=== PATIENT | male | born 1945 ===

== ENCOUNTER 2016-12-25 14:50 | Observation (INO) | payer MEDICARE, MEDICAID ==
[2016-12-25] MEDS ORDERED: Aspirin 325 mg EC Tablets PO STA (15:30)
[2016-12-25 15:54] LABS: BASO # 0.1 K/uL (0.0-0.2); BASO % 0.9 % (0.0-2.0); EOS # 0.2 K/uL (0.0-0.7); EOS % 2.3 % (0.0-4.0); HEMATOCRIT 45.7 % (35.0-51.0); LYMPH % 60.9 % (20.0-40.0); MEAN CELL VOLUME 96.2 fL (80.0-94.0); MEAN CORPUSCULAR HEMOGLOBIN 31.4 pg (27.0-31.0); MEAN CORPUSCULAR HGB CONC 32.6 g/dL (33.0-37.0); MEAN PLATELET VOLUME 10.5 fL (7.2-11.7); MONO # 0.7 K/uL (0.0-0.8); MONO % 11.1 % (0.0-10.0); NRBC % 0.1 % (0.0-2.0); RED CELL DISTRIBUTION WIDTH 14.7 % (11.5-14.5); WHITE BLOOD COUNT 6.6 K/uL (4.8-10.8)
[2016-12-25 15:57] LABS: INR 1.7
[2016-12-25] MEDS ORDERED: Nitroglycerin 2% Ointment Foilpak UD TOP STA (15:58)
[2016-12-25 15:59] LABS: CHLORIDE 101 mmol/L (98-107); SODIUM 138 mmol/L (132-148)
[2016-12-25 16:00] LABS: POTASSIUM 4.3 mmol/L (3.6-5.2)
[2016-12-25 16:02] LABS: ALKALINE PHOSPHATASE 67 U/L (38-126); ALT/SGPT 36 U/L (21-72); AST/SGOT 31 U/L (17-59); BILIRUBIN,TOTAL 1.1 mg/dL (0.2-1.3); BLOOD UREA NITROGEN 14 mg/dL (9-20); CARBON DIOXIDE 26 mmol/L (22-30); GFR AFRICAN-AMERICAN > 60; GLUCOSE,RANDOM 99 mg/dL (75-110); TOTAL PROTEIN 7.8 g/dL (6.3-8.3)
[2016-12-25] MEDS ORDERED: Nitroglycerin 2% Ointment Foilpak UD TOP ONE (16:16)
--- NOTE | 2016-12-25 16:23 | RAD ---
PROCEDURE: CHEST RADIOGRAPH, 1 VIEW HISTORY: SOB COMPARISON: 07/07/2016. FINDINGS: LUNGS: There is mild pulmonary venous congestion. No focal consolidation. PLEURA: No pneumothorax or pleural fluid seen. CARDIOVASCULAR: There is moderate cardiomegaly. Status post CABG. There is stable position of a left-sided unipolar transvenous permanent pacing device. OSSEOUS STRUCTURES: No significant abnormalities. VISUALIZED UPPER ABDOMEN: Normal. OTHER FINDINGS: None. IMPRESSION: Persistent moderate cardiomegaly and mild pulmonary venous congestion.
[2016-12-25 16:24] LABS: RBC URINE < 1 /hpf (0-3); URINE BILIRUBIN NEGATIVE (NEGATIVE); URINE BLOOD NEGATIVE (NEGATIVE); URINE COLOR Yellow (YELLOW); URINE GLUCOSE (UA) NORMAL (Normal); URINE KETONE NEGATIVE (NEGATIVE); URINE LEUKOCYTE ESTERASE NEG Leu/uL (Negative); URINE PROTEIN NEGATIVE (NEGATIVE); URINE UROBILINOGEN NORMAL mg/dL (0.2-1.0); WBC URINE < 1 /hpf (0-5)
--- NOTE | 2016-12-25 16:33 | C.PDOC ---
History Of Present Illness 71 y/o male brought to ED by ambulance for evaluation of intermittent digitally and positionally reproducible left sided chest pain for the last 3 weeks. Notes taking unknown meds for his discomfort, but did not take it today. Denies any pain at this time. Otherwise, denies any shortness of breath, headache, fever, chills cough, nausea, vomiting, diarrhea, diaphoresis, jaw pain, back pain, or lower extremity pain/swelling. Cardiac catherization reviewed from 07/17 with patent grafts. Time Seen by Provider: 12/25/16 15:25 Chief Complaint (Nursing): Chest Pain History Per: Patient History/Exam Limitations: no limitations Onset/Duration Of Symptoms: Days (3 weeks), Intermittent Episodes Current Symptoms Are (Timing): Still Present Associated Symptoms: denies: Nausea, Dyspnea, Diaphoresis, Syncope Alleviating Factors: None Recent travel outside of the [place]: No Additional History Per: Patient Past Medical History Reviewed: Historical Data, Nursing Documentation, Vital Signs Vital Signs: Last Vital Signs Temp Pulse 77 12/25/16 16:13 Resp 14 12/25/16 16:13 BP 156/96 H 12/25/16 16:13 Pulse Ox 97 12/25/16 18:00 - Medical History PMH: Anxiety, HTN Denies: Chronic Kidney Disease Surgical History: Coronary Stent, Pacemaker - [facility] Procedures FLUOROSCOPY OF LEFT HEART USING LOW OSMOLAR CONTRAST (07/07/16) FLUOROSCOPY OF MULT COR ART USING L OSM CONTRAST (07/07/16) MEASURE OF CARDIAC SAMPL & PRESSURE, L HEART, PERC APPROACH (07/07/16) Family History: States: Unknown Family Hx - Social History Hx Alcohol Use: No Hx Substance Use: No - Immunization History Hx Tetanus Toxoid Vaccination: No Review Of Systems Except As Marked, All Systems Reviewed And Found Negative. Constitutional: Negative for: Fever, Chills Cardiovascular: Positive for: Chest Pain. Negative for: Palpitations, Edema, Light Headedness Respiratory: Negative for: Cough, Shortness of Breath Gastrointestinal: Negative for: Nausea, Vomiting, Abdominal Pain Neurological: Negative for: Headache, Dizziness Physical Exam - Physical Exam Appears: Non-toxic, No Acute Distress Skin: Normal Color, Warm, Dry, No Rash Head: Atraumatic, Normacephalic Eye(s): bilateral: Normal Inspection Oral Mucosa: Moist Neck: Normal ROM, Supple Chest: Symmetrical, No Deformity, Tenderness (digitally and positionally reproducible discomfort at Left chest wall, around T5), Other (midline sternotomy scar, pacemaker to left upper chest) Cardiovascular: Rhythm Regular, No Murmur, No JVD Respiratory: Normal Breath Sounds, No Rales, No Rhonchi, No Wheezing Gastrointestinal/Abdominal: Soft, No Tenderness, Other (obese abdomen) Back: Normal Inspection, No CVA Tenderness Extremity: Normal ROM, Pedal Edema (trace), No Deformity Extremity: Bilateral: Atraumatic Neurological/Psych: Oriented x3, Normal Speech, Normal Cognition ED Course And Treatment - Laboratory Results Result Diagrams: 12/25/16 15:42 12/25/16 15:42 Lab Interpretation: Normal (trop/bnp neg.) ECG: Interpreted By Me ECG Rhythm: Sinus Tachycardia ECG Interpretation: Normal, Abnormal Rate From EC O2 Sat by Pulse Oximetry: 97 Pulse Ox Interpretation: Normal - Radiology CXR: Interpreted by Me CXR Interpretation: Yes: No Acute Disease, Heart Size (++ megaly) Reevaluation Time: 16:34 Reassessment Condition: Improved - Physician Consult Information Outcome Of Conversation: 1635: d/w Hospitalists covering Dr. Cuevas's pt's. ok to tele Obs. Medical Decision Making Medical Decision Making: concerning for angina, though 2 recent cardiac evals and "clear" cardiac cath w Dr. Whaley. Digitally reproducable discomfort @ L chest wall T5 mid-clavicular line and no rash is c/w costochondritis and MAY be pt's complaint but difficult to distinguish, even speaking pt's [place] Tele Obs and repeat Cardiac Eval Dig Subtheraputic and baseline tachy, but may be related to pain/anxiety as HR 70's on eval by monitor. Disposition Doctor Will See Patient In The: Hospital Counseled Patient/Family Regarding: Studies Performed, Diagnosis - Disposition Disposition: HOSPITALIZED Disposition Time: 16:37 Condition: GOOD - Clinical Impression Clinical Impression: Chest discomfort, Chest wall discomfort - Scribe Statement The provider has reviewed the documentation as recorded by the Nadir Maharaj All medical record entries made by the Scribe were at my direction and personally dictated by me. I have reviewed the chart and agree that the record accurately reflects my personal performance of the history, physical exam, medical decision making, and the department course for this patient. I have also personally directed, reviewed, and agree with the discharge instructions and disposition.
--- NOTE | 2016-12-25 17:06 | CP.PCM.HP ---
<[place] - Last Filed: 12/25/16 18:28> History of Present Illness - History of Present Illness History of Present Illness: Medicine Note for Dr. Mckeon CC: Chest Pain HPI: 71M with PMHx of Ishemic Cardiomyopathy with AICD, HTN, CAD, HLD, and CVA presents to the ED with chest pain. He had this intermittent left sided, sharp chest pain that last for 2-3 minutes. He does not take anything for it, but admits when he touches his chest, it hurts. Patient reports he is noncompliant with his medications, taking them when he remembers to. He came in today because he felt the same degree of pain when he had a heart attack in July 2016. Patient had full work up in July 2016 when he presented with chest pain, with cardiac cath showing patent graphs. Denied fever, chills, headache, current chest pain, abdominal pain, n/v/d/c, or urinary symptoms. PMHx: Ishemic Cardiomyopathy with AICD, HTN, CAD, HLD, and CVA PSHx: AICD Meds: Reviewed and confirmed, meds as per JUL All: PCN- rash SHx: Denied x3 FHx: Unremarkable Present on Admission - Present on Admission Any Indicators Present on Admission: No Past Patient History - Infectious Disease Hx of Infectious Diseases: None - Past Medical History & Family History Past Medical History?: Yes - Past Social History Smoking Status: Never Smoked - CARDIAC Hx Hypertension: Yes Hx Pacemaker: Yes - PULMONARY Hx Respiratory Disorders: No - NEUROLOGICAL Hx Neurological Disorder: No HX Cerebrovascular Accident: Yes - HEENT Hx HEENT Problems: No - RENAL Hx Chronic Kidney Disease: No - ENDOCRINE/METABOLIC Hx Endocrine Disorders: No - HEMATOLOGICAL/ONCOLOGICAL Hx Blood Disorders: No - INTEGUMENTARY Hx Dermatological Problems: No - MUSCULOSKELETAL/RHEUMATOLOGICAL Hx Musculoskeletal Disorders: No - GASTROINTESTINAL Hx Gastrointestinal Disorders: No - GENITOURINARY/GYNECOLOGICAL Hx Genitourinary Disorders: No - PSYCHIATRIC Hx Anxiety: Yes Hx Substance Use: No - SURGICAL HISTORY Hx Coronary Stent: Yes - ANESTHESIA Hx Anesthesia: Yes Hx Anesthesia Reactions: No Hx Malignant Hyperthermia: No Meds Allergies/Adverse Reactions: Allergies Allergy/AdvReac Type Severity Reaction Status Date / Time Penicillins Allergy Mild Verified 07/07/16 03:04 Physical Exam - Constitutional Appears: No Acute Distress - Head Exam Head Exam: NORMAL INSPECTION, NORMOCEPHALIC - Eye Exam Eye Exam: EOMI, Normal appearance, PERRL Pupil Exam: NORMAL ACCOMODATION - ENT Exam ENT Exam: Mucous Membranes Moist - Respiratory Exam Respiratory Exam: NORMAL BREATHING PATTERN. absent: Clear to Auscultation Bilateral - Cardiovascular Exam Cardiovascular Exam: Tachycardia, +S1, +S2 Additional comments: Digitally reproducable discomfort @ L chest wall T5 mid-clavicular line and no rash AICD - GI/Abdominal Exam GI & Abdominal Exam: Normal Bowel Sounds, Soft. absent: Distended, Tenderness - Extremities Exam Extremities exam: Positive for: normal inspection, pedal pulses present. Negative for: pedal edema, tenderness - Neurological Exam Neurological exam: Alert, Oriented x3 - Psychiatric Exam Psychiatric exam: Normal Affect, Normal Mood - Skin Skin Exam: Dry, Intact, Normal Color, Warm Results - Vital Signs Recent Vital Signs: Last Vital Signs Temp Pulse 77 12/25/16 16:13 Resp 14 12/25/16 16:13 BP 156/96 H 12/25/16 16:13 Pulse Ox 97 12/25/16 16:38 - Labs Result Diagrams: 12/25/16 15:42 12/25/16 15:42 Assessment & Plan - Assessment and Plan (Free Text) Plan: Chest Pain R/O ACS * EKG: Sinus Tachycardia @ 101 * 1st AYANA negative * Patient was seen July 2016. Hx of AICD. Echo- LV mildly dilated, systolic function moderately impaired, LVEF 30%. Regional wall motion abnormalities noted in lateral and apical wall. He had an NSTEMI during that admission. Patient had cardiac catherization with Dr. Sierra - patent grafts. recommend continued aspirin plavix. patient was stable for discharge. * Cardiology consulted - Dr. Sierra consulted- help appreciated * f/u AYANA and EKG x 2, lipid panel, hga1c, tsh, t4 Chest Wall Tenderness * Consistent with costochondritis * Digitally reproducible discomfort @ L chest wall T5 mid-clavicular line and no rash is seen on exam * Toradol PRN Ischemic cardiomyopathy * AICD in place Hx HTN * Continue Metoprolol Succinate 50mg PO Daily Hx of NSTEMI * Patient had cardiac catherization with Dr. Sierra - patent grafts. recommend continued aspirin plavix. patient was stable for discharge. Hx CAD * Continue Xarelto 15mg PO daily Hx of HLD * Started Crestor 20mg PO QHS Hx of CVA * Continue Xarelto 15mg PO daily Prophylactic Measures * GI PPX: Pepcid 40mg PO daily * DVT PPX: SCDs, on anticoagulation due to CAD, Hx of NSTEMI, CVA * HHD DW Dr. Mckeon, Shanda SKINNER, PGY-1 <Tom Mckeon H - Last Filed: 12/26/16 07:39> Results - Vital Signs Recent Vital Signs: Last Vital Signs Temp 97.4 F L 12/26/16 04:47 Pulse 78 12/26/16 04:47 Resp 20 12/26/16 04:47 BP 156/98 H 12/26/16 04:47 Pulse Ox 96 12/26/16 04:47 - Labs Result Diagrams: 12/25/16 15:42 12/25/16 15:42 Labs: Laboratory Results - last 24 hr 12/25/16 22:43 Total Creatine Kinase 118 CK-MB (Mass) 1.89 Troponin I, Quant 0.0390 Attending/Attestation - Attestation I have personally seen and examined this patient.: Yes I have fully participated in the care of the patient.: Yes I have reviewed all pertinent clinical information: Yes Notes (Text): Medical attending: Patient was seen and examined by me, agrees the above note by medical/surgery registered nurse. When we saw the patient he was in ER bed 6. This is a patient who walked physical exam and discussing with the patient it appears that the chest pain he is having may be costochondritis/musculoskeletal since it is reproducible on exam - however he has many risk factors including: he states that he is rather noncompliant with his medications. He's had CABG surgery in the past, he's had stenting done in the past, he is also had he has had an AICD, CVA on his right side of his brain with some residual weakness on his left side. It is not entirely clear to me if he smokes or not. Per review of the EKG he has prominent Q waves, and he has very poor R-wave progression. All of these are suggestive of a lot of cardiac history So will check additional cardiac enzymes. We'll give some anti-inflammatory pain medication. Because of his medical history will have to notify the patient' s office secretary as well. The patient explains that he has not followed up with his office secretary since July of this year Thank you so much, Tom Mckeon
[2016-12-25 18:24] LABS: T4 6.92 ug/dL (5.5-11.0)
[2016-12-25 18:38] LABS: THYROID STIMULATING HORMONE 2.12 mIU/L (0.46-4.68)
[2016-12-26 07:40] LABS: BASO # 0.1 K/uL (0.0-0.2); EOS # 0.3 K/uL (0.0-0.7); EOS % 4.4 % (0.0-4.0); HEMATOCRIT 45.7 % (35.0-51.0); LYMPH # 3.5 K/uL (1.0-4.3); LYMPH % 56.7 % (20.0-40.0); MEAN CELL VOLUME 96.7 fL (80.0-94.0); MEAN CORPUSCULAR HEMOGLOBIN 32.3 pg (27.0-31.0); MEAN CORPUSCULAR HGB CONC 33.4 g/dL (33.0-37.0); MEAN PLATELET VOLUME 10.4 fL (7.2-11.7); MONO # 0.6 K/uL (0.0-0.8); MONO % 10.1 % (0.0-10.0); NRBC % 0.1 % (0.0-2.0); RED CELL DISTRIBUTION WIDTH 14.8 % (11.5-14.5); WHITE BLOOD COUNT 6.1 K/uL (4.8-10.8)
--- NOTE | 2016-12-26 08:40 | CP.PCM.PN ---
Subjective - Date & Time of Evaluation Date of Evaluation: 12/26/16 Time of Evaluation: 08:39 - Subjective Subjective: Medicine Note for Dr. Sanchez's Service Pt seen and examined at bedside. He states that he is feeling better today. He denies any chest pain or shortness of breath. Pt states that he came into the hospital yesterday because he had a lot on his mind that was stressing him out but he is better today. No acute events overnight as per nursing staff. Objective - Vital Signs/Intake and Output Vital Signs (last 24 hours): Temp Pulse Resp BP Pulse Ox 97.6 F 64 18 146/84 97 12/26/16 07:15 12/26/16 07:15 12/26/16 07:15 12/26/16 07:15 12/26/16 07:15 Intake and Output: 12/26/16 12/26/16 06:59 18:59 Output Total 900 Balance -900 - Medications Medications: Current Medications Famotidine (Pepcid) 40 mg PO DAILY [facility] Ketorolac Tromethamine (Toradol) 30 mg IVP Q6 PRN PRN Reason: Pain, moderate (4-7) Last Admin: 12/26/16 06:33 Dose: 30 mg Metoprolol Succinate (Toprol Xl) 50 mg PO DAILY [facility] Rivaroxaban (Xarelto) 15 mg PO DAILY [facility] Rosuvastatin Calcium (Crestor) 20 mg PO HS [facility] Last Admin: 12/25/16 22:29 Dose: 20 mg Zolpidem Tartrate (Ambien) 5 mg PO [facility] Last Admin: 12/25/16 22:29 Dose: 5 mg - Labs Labs: 12/26/16 07:27 PT 19.8 SECONDS (9.7-12.2) H 12/25/16 15:42 INR 1.7 12/25/16 15:42 APTT 36 SECONDS (21-34) H 12/25/16 15:42 - Constitutional Appears: No Acute Distress - Head Exam Head Exam: ATRAUMATIC, NORMAL INSPECTION - Eye Exam Eye Exam: EOMI, Normal appearance - ENT Exam ENT Exam: Mucous Membranes Moist - Respiratory Exam Respiratory Exam: Clear to Ausculation Bilateral, NORMAL BREATHING PATTERN - Cardiovascular Exam Cardiovascular Exam: Tachycardia (mild) Additional comments: reproducible chest wall tenderness - GI/Abdominal Exam GI & Abdominal Exam: Soft. absent: Tenderness - Neurological Exam Neurological Exam: Alert, Awake, Oriented x3 - Psychiatric Exam Psychiatric exam: Normal Affect, Normal Mood - Skin Skin Exam: Dry, Intact Assessment and Plan - Assessment and Plan (Free Text) Plan: Patient is clinically stable and no acute changes. He is currently asymptomatic and awaiting cardiology evaluation by Dr. Sierra. We will follow up recommendations from Dr. Sierra and proceed forward. Chest Pain R/O ACS * EKG: Sinus Tachycardia; unchanged from previous EKG * AYANA's: 0.036->0.039->0.043 * Patient was seen July 2016. Hx of AICD. Echo- LV mildly dilated, systolic function moderately impaired, LVEF 30%. Regional wall motion abnormalities noted in lateral and apical wall. He had an NSTEMI during that admission. Patient had cardiac catherization with Dr. Sierra - isael grafts. recommend continued aspirin plavix. patient was stable for discharge. * Cardiology consulted - Dr. Sierra consulted- help appreciated * Lipid panel * Total cholesterol- 127 * Triglycerides-102 * HDL-37 * LDL-79 * Hemoglobin A1C 6.7 * TSH 2.2 and T4 6.92 Chest Wall Tenderness * Consistent with costochondritis * Digitally reproducible discomfort @ L chest wall T5 mid-clavicular line and no rash is seen on exam * Toradol PRN Ischemic cardiomyopathy * AICD in place Hx HTN * Continue Metoprolol Succinate 50mg PO Daily Hx of NSTEMI * Patient had cardiac catherization with Dr. Sierra - patent grafts. recommend continued aspirin and plavix. Hx CAD * Continue Xarelto 15mg PO daily * Pt admits to non-compliance with xarelto at home Hx of HLD * Started Crestor 20mg PO QHS Hx of CVA * Continue Xarelto 15mg PO daily Insomnia * Ambien 50mg PO hs Prophylactic Measures * GI PPX: Pepcid 40mg PO daily * DVT PPX: SCDs, on anticoagulation due to CAD, Hx of NSTEMI, CVA * HHD Case discussed with Dr. Mckeon.
[2016-12-26 08:57] LABS: CHLORIDE 102 mmol/L (98-107); POTASSIUM 4.5 mmol/L (3.6-5.2); SODIUM 136 mmol/L (132-148)
[2016-12-26 08:59] LABS: ALB/GLOB RATIO 0.9 (1.0-2.1); ALKALINE PHOSPHATASE 74 U/L (38-126); AST/SGOT 48 U/L (17-59); BILIRUBIN,TOTAL 1.1 mg/dL (0.2-1.3); BLOOD UREA NITROGEN 16 mg/dL (9-20); CARBON DIOXIDE 21 mmol/L (22-30); CHOLESTEROL 127 mg/dL (0-199); GFR AFRICAN-AMERICAN > 60; TOTAL PROTEIN 7.6 g/dL (6.3-8.3)
[2016-12-26 09:00] LABS: ALT/SGPT 23 U/L (21-72); CALCIUM 8.9 mg/dl (8.6-10.4); GLUCOSE,RANDOM 105 mg/dL (75-110); MAGNESIUM 1.9 mg/dL (1.6-2.3); PHOSPHOROUS 3.3 mg/dL (2.5-4.5)
[2016-12-26] MEDS ORDERED: Metoprolol Succinate 50 mg XL Tab PO SCH (10:00)
--- NOTE | 2016-12-26 13:57 | CP.PCM.CON ---
History of Present Illness - History of Present Illness History of Present Illness: CC: Chest pain HPI: 71 year old man with the following chronic conditions 1. Paroxysmal atrial fibrillation 2. HTN 3. Dyslipidemia 4. Ischemic cardiomyopathy Past Patient History - Infectious Disease Hx of Infectious Diseases: None - Past Medical History & Family History Past Medical History?: Yes - Past Social History Smoking Status: Never Smoked - CARDIAC Hx Hypertension: Yes Hx Pacemaker: Yes - PULMONARY Hx Respiratory Disorders: No - NEUROLOGICAL Hx Neurological Disorder: No HX Cerebrovascular Accident: Yes - HEENT Hx HEENT Problems: No - RENAL Hx Chronic Kidney Disease: No - ENDOCRINE/METABOLIC Hx Endocrine Disorders: No - HEMATOLOGICAL/ONCOLOGICAL Hx Blood Disorders: No - INTEGUMENTARY Hx Dermatological Problems: No - MUSCULOSKELETAL/RHEUMATOLOGICAL Hx Musculoskeletal Disorders: No Hx Falls: No - GASTROINTESTINAL Hx Gastrointestinal Disorders: No - GENITOURINARY/GYNECOLOGICAL Hx Genitourinary Disorders: No - PSYCHIATRIC Hx Anxiety: Yes Hx Substance Use: No - SURGICAL HISTORY Hx Coronary Stent: Yes - ANESTHESIA Hx Anesthesia: Yes Hx Anesthesia Reactions: No Hx Malignant Hyperthermia: No Meds Allergies/Adverse Reactions: Allergies Allergy/AdvReac Type Severity Reaction Status Date / Time Penicillins Allergy Mild Verified 07/07/16 03:04 - Medications Medications: Current Medications Famotidine (Pepcid) 40 mg PO DAILY [facility] Last Admin: 12/26/16 09:41 Dose: 40 mg Ketorolac Tromethamine (Toradol) 30 mg IVP Q6 PRN PRN Reason: Pain, moderate (4-7) Last Admin: 12/26/16 06:33 Dose: 30 mg Metoprolol Succinate (Toprol Xl) 50 mg PO DAILY [facility] Last Admin: 12/26/16 09:41 Dose: 50 mg Rivaroxaban (Xarelto) 15 mg PO DAILY [facility] Last Admin: 12/26/16 09:41 Dose: 15 mg Rosuvastatin Calcium (Crestor) [address] [facility] Last Admin: 12/25/16 22:29 Dose: 20 mg Zolpidem Tartrate (Ambien) [address] [facility] Last Admin: 12/25/16 22:29 Dose: 5 mg Physical Exam - Constitutional Appears: Well, Non-toxic - Head Exam Head Exam: ATRAUMATIC, NORMAL INSPECTION - ENT Exam ENT Exam: Mucous Membranes Moist, Normal External Ear Exam - Neck Exam Neck exam: Positive for: Full Rom. Negative for: Lymphadenopathy, Thyromegaly - Respiratory Exam Respiratory Exam: Clear to Auscultation Bilateral, NORMAL BREATHING PATTERN - Cardiovascular Exam Cardiovascular Exam: REGULAR RHYTHM, RRR, +S1, +S2. absent: JVD - GI/Abdominal Exam GI & Abdominal Exam: Normal Bowel Sounds. absent: Organomegaly - Extremities Exam Extremities exam: Negative for: calf tenderness, pedal edema - Neurological Exam Neurological exam: CN II-XII Intact, Oriented x3 - Psychiatric Exam Psychiatric exam: Normal Affect, Normal Mood Results - Vital Signs Recent Vital Signs: Last Vital Signs Temp 97.6 F 12/26/16 07:15 Pulse 64 12/26/16 07:15 Resp 18 12/26/16 07:15 BP 146/84 12/26/16 07:15 Pulse Ox 97 12/26/16 07:15 - Labs Result Diagrams: 12/26/16 07:27 12/26/16 08:51 Labs: Laboratory Results - last 24 hr 12/25/16 12/26/16 12/26/16 22:43 07:27 07:27 WBC 6.1 RBC 4.72 Hgb 15.3 Hct 45.7 MCV 96.7 H MCH 32.3 H MCHC 33.4 RDW 14.8 H Plt Count 115 L MPV 10.4 Neut % (Auto) 27.8 L Lymph % (Auto) 56.7 H Foard % (Auto) 10.1 H Eos % (Auto) 4.4 H Baso % (Auto) 1.0 Neut # 1.7 L Lymph # 3.5 Foard # 0.6 Eos # 0.3 Baso # 0.1 Sodium Potassium Chloride Carbon Dioxide Anion Gap BUN Creatinine Est GFR ( Amer) Est GFR (Non-Af Amer) Random Glucose Calcium Phosphorus Magnesium Total Bilirubin AST ALT Alkaline Phosphatase Total Creatine Kinase 118 131 CK-MB (Mass) 1.89 2.19 Troponin I, Quant 0.0390 0.0430 Total Protein Albumin Globulin Albumin/Globulin Ratio Triglycerides Cholesterol LDL Cholesterol Direct HDL Cholesterol 12/26/16 08:51 WBC RBC Hgb Hct MCV MCH MCHC RDW Plt Count MPV Neut % (Auto) Lymph % (Auto) Foard % (Auto) Eos % (Auto) Baso % (Auto) Neut # Lymph # Foard # Eos # Baso # Sodium 136 Potassium 4.5 Chloride 102 Carbon Dioxide 21 L Anion Gap 18 BUN 16 Creatinine 0.8 Est GFR ( Amer) > 60 Est GFR (Non-Af Amer) > 60 Random Glucose 105 Calcium 8.9 Phosphorus 3.3 Magnesium 1.9 Total Bilirubin 1.1 AST 48 ALT 23 Alkaline Phosphatase 74 Total Creatine Kinase CK-MB (Mass) Troponin I, Quant Total Protein 7.6 Albumin 3.7 Globulin 3.9 Albumin/Globulin Ratio 0.9 L Triglycerides 102 D Cholesterol 127 LDL Cholesterol Direct 79 HDL Cholesterol 37 Assessment & Plan - Assessment and Plan (Free Text) Assessment: 71 year old man with ischemic cardiomyopathy with minimal elevated troponin which is likely due to prior cardiomyopathy; likely will benefit from RAAS blockade Atrial fibrillaiton continue NOAC for CVA prophylaxsis HTN is chronic and stable on toprol XL He can be d/c home from a cardiac stand point. He is advised to follow up with Dr. Sierra in 1-2 weeks.
[2016-12-26 16:12] VITALS: BP 155/95; PULSE 76; RESP 20; TEMP 97.3; O2SAT 99
--- NOTE | 2016-12-26 17:51 | CP.PCM.DIS ---
<Regan Garza S - Last Filed: 12/26/16 17:47> Provider - Provider Date of Admission: 12/25/16 16:50 Attending physician: Tom Mcekon DO Primary care physician: Dr. Sanchez Consults: Dr. Cisneros Time Spent in preparation of Discharge (in minutes): 30 Diagnosis - Discharge Diagnosis (1) Chest pain Status: Resolved Hospital Course - Lab Results Lab Results: Most Recent Lab Values WBC 6.1 K/uL (4.8-10.8) 12/26/16 07: RBC 4.72 Mil/uL (4.40-5.90) 12/26/16 07:27 Hgb 15.3 g/dL (12.0-18.0) 12/26/16 07: Hct 45.7 % (35.0-51.0) 12/26/16 07: MCV 96.7 fL (80.0-94.0) H 12/26/16 07: MCH 32.3 pg (27.0-31.0) H 12/26/16 07: MCHC 33.4 g/dL (33.0-37.0) 12/26/16 07: RDW 14.8 % (11.5-14.5) H 12/26/16 07:27 Plt Count 115 K/uL (130-400) L 12/26/16 07:27 MPV 10.4 fL (7.2-11.7) 12/26/16 07: Neut % (Auto) 27.8 % (50.0-75.0) L 12/26/16 07: Lymph % (Auto) 56.7 % (20.0-40.0) H 12/26/16 07:27 Sioux % (Auto) 10.1 % (0.0-10.0) H 12/26/16 07: Eos % (Auto) 4.4 % (0.0-4.0) H 12/26/16 07:27 Baso % (Auto) 1.0 % (0.0-2.0) 12/26/16 07:27 Neut # 1.7 K/uL (1.8-7.0) L 12/26/16 07: Lymph # 3.5 K/uL (1.0-4.3) 12/26/16 07:27 Sioux # 0.6 K/uL (0.0-0.8) 12/26/16 07:27 Eos # 0.3 K/uL (0.0-0.7) 12/26/16 07:27 Baso # 0.1 K/uL (0.0-0.2) 12/26/16 07:27 Differential Comment 12/25/16 15:42 PT 19.8 SECONDS (9.7-12.2) H 12/25/16 15:42 INR 1.7 12/25/16 15:42 APTT 36 SECONDS (21-34) H 12/25/16 15:42 Sodium 136 mmol/L (132-148) 12/26/16 08:51 Potassium 4.5 mmol/L (3.6-5.2) 12/26/16 08:51 Chloride 102 mmol/L (98-107) 12/26/16 08:51 Carbon Dioxide 21 mmol/L (22-30) L 12/26/16 08:51 Anion Gap 18 (10-20) 12/26/16 08:51 BUN 16 mg/dL (9-20) 12/26/16 08:51 Creatinine 0.8 MG/DL (0.8-1.5) 12/26/16 08:51 Est GFR ( Amer) > 60 12/26/16 08:51 Est GFR (Non-Af Amer) > 60 12/26/16 08:51 Random Glucose 105 mg/dL (75-110) 12/26/16 08:51 Hemoglobin A1c 6.7 % (4.2-6.5) H 12/25/16 15:42 Calcium 8.9 mg/dl (8.6-10.4) 12/26/16 08:51 Phosphorus 3.3 mg/dL (2.5-4.5) 12/26/16 08:51 Magnesium 1.9 mg/dL (1.6-2.3) 12/26/16 08:51 Total Bilirubin 1.1 mg/dL (0.2-1.3) 12/26/16 08:51 AST 48 U/L (17-59) 12/26/16 08:51 ALT 23 U/L (21-72) 12/26/16 08:51 Alkaline Phosphatase 74 U/L (38-126) 12/26/16 08:51 Total Creatine Kinase 131 U/L (55-170) 12/26/16 07:27 CK-MB (Mass) 2.19 ng/mL (0.0-3.38) 12/26/16 07:27 Troponin I 0.0360 ng/mL (0.00-0.120) 12/25/16 15:42 Troponin I, Quant 0.0430 ng/mL (0.00-0.120) 12/26/16 07:27 NT-Pro-B Natriuret Pep 505 pg/mL (0-900) 12/25/16 15:42 Total Protein 7.6 g/dL (6.3-8.3) 12/26/16 08:51 Albumin 3.7 g/dL (3.5-5.0) 12/26/16 08:51 Globulin 3.9 gm/dL (2.2-3.9) 12/26/16 08:51 Albumin/Globulin Ratio 0.9 (1.0-2.1) L 12/26/16 08:51 Triglycerides 102 mg/dL (0-149) D 12/26/16 08:51 Cholesterol 127 mg/dL (0-199) 12/26/16 08:51 LDL Cholesterol Direct 79 mg/dL (0-129) 12/26/16 08:51 HDL Cholesterol 37 mg/dL (30-70) 12/26/16 08:51 Thyroxine (T4) 6.92 ug/dL (5.5-11.0) 12/25/16 15:42 TSH 3rd Generation 2.12 mIU/L (0.46-4.68) 12/25/16 15:42 Urine Color Yellow (YELLOW) 12/25/16 16:12 Urine Clarity Clear (Clear) 12/25/16 16:12 Urine pH 6.0 (5.0-8.0) 12/25/16 16:12 Ur Specific Acme 1.009 (1.003-1.030) 12/25/16 16:12 Urine Protein Negative mg/dL (NEGATIVE) 12/25/16 16:12 Urine Glucose (UA) Normal mg/dL (Normal) 12/25/16 16:12 Urine Ketones Negative mg/dL (NEGATIVE) 12/25/16 16:12 Urine Blood Negative (NEGATIVE) 12/25/16 16:12 Urine Nitrate Negative (NEGATIVE) 12/25/16 16:12 Urine Bilirubin Negative (NEGATIVE) 12/25/16 16:12 Urine Urobilinogen Normal mg/dL (0.2-1.0) 12/25/16 16:12 Ur Leukocyte Esterase Neg Mirna/uL (Negative) 12/25/16 16:12 Urine WBC (Auto) < 1 /hpf (0-5) 12/25/16 16:12 Urine RBC (Auto) < 1 /hpf (0-3) 12/25/16 16:12 Digoxin 0.6 ng/mL (0.8-2.0) L 12/25/16 15:42 - Hospital Course Hospital Course: 71M with PMHx of Ishemic Cardiomyopathy with AICD, HTN, CAD, HLD, and CVA presents to the ED with chest pain. He had this intermittent left sided, sharp chest pain that last for 2-3 minutes. He does not take anything for it, but admits when he touches his chest, it hurts. Patient reports he is noncompliant with his medications, taking them when he remembers to. He came in today because he felt the same degree of pain when he had a heart attack in July 2016. Patient had full work up in July 2016 when he presented with chest pain, with cardiac cath showing patent graphs. Denied fever, chills, headache, current chest pain, abdominal pain, n/v/d/c, or urinary symptoms. PMHx: Ishemic Cardiomyopathy with AICD, HTN, CAD, HLD, and CVA PSHx: AICD Meds: Reviewed and confirmed, meds as per JUL All: PCN- rash SHx: Denied x3 FHx: Unremarkable Chest Pain R/O ACS * EKG: Sinus Tachycardia; unchanged from previous EKG * AYANA's: 0.036->0.039->0.043 * Patient was seen July 2016. Hx of AICD. Echo- LV mildly dilated, systolic function moderately impaired, LVEF 30%. Regional wall motion abnormalities noted in lateral and apical wall. He had an NSTEMI during that admission. Patient had cardiac catherization with Dr. Sierra - patent grafts. recommend continued aspirin plavix. patient was stable for discharge. * Cardiology consulted - Dr. Sierra consulted- help appreciated * Lipid panel * Total cholesterol- 127 * Triglycerides-102 * HDL-37 * LDL-79 * Hemoglobin A1C 6.7 * TSH 2.2 and T4 6.92 Chest Wall Tenderness * Consistent with costochondritis * Digitally reproducible discomfort @ L chest wall T5 mid-clavicular line and no rash is seen on exam * Toradol PRN Ischemic cardiomyopathy * AICD in place Hx HTN * Continue Metoprolol Succinate 50mg PO Daily Hx of NSTEMI * Patient had cardiac catherization with Dr. Sierra - patent grafts. recommend continued aspirin and plavix. Hx CAD * Continue Xarelto 15mg PO daily * Pt admits to non-compliance with xarelto at home Hx of HLD * Started Crestor 20mg PO QHS Hx of CVA * Continue Xarelto 15mg PO daily Insomnia * Ambien 50mg PO hs Prophylactic Measures * GI PPX: Pepcid 40mg PO daily * DVT PPX: SCDs, on anticoagulation due to CAD, Hx of NSTEMI, CVA * HHD Patient was admitted for R/O ACS, AYANA's were negative, EKG was unchanged and symptoms resolved. Patient was seen by Dr. Cisneros and deemed stable for discharge. Patient was discharged home. Compliance with medication was communicated. Case discussed with Dr. Mckeon. Discharge Exam - Head Exam Head Exam: ATRAUMATIC, NORMAL INSPECTION Discharge Plan - Follow Up Plan Condition: GOOD Disposition: HOME/ ROUTINE Instructions: Metoprolol (By mouth), Lisinopril (By mouth), Aspirin (By mouth) , Zolpidem (By mouth), Rivaroxaban (By mouth), Chest Pain (DC), Heart Healthy Diet (DC) Additional Instructions: Patient stable for discharge per Dr. Mckeon. Patient should resume all home medications. Patient should make an appointment and follow up with PMD and With boarding specialist Dr. Cisneros within one week for follow up care. Patient should return to ED immediately if symptoms return or worsen. Instructions discussed with patient who understood and agreed. Referrals: Tyler Sanchez MD [Staff Provider] - (call for appointment) Jordy Cisneros MD [Staff Provider] - (call for appointment) <Tom Mckeon - Last Filed: 12/27/16 07:55> Provider - Provider Date of Admission: 12/25/16 16:50 Attending physician: Tom Mckeon [facility] Course - Lab Results Lab Results: Most Recent Lab Values WBC 6.1 K/uL (4.8-10.8) 12/26/16 07: RBC 4.72 Mil/uL (4.40-5.90) 12/26/16 07:27 Hgb 15.3 g/dL (12.0-18.0) 12/26/16 07: Hct 45.7 % (35.0-51.0) 12/26/16 07: MCV 96.7 fL (80.0-94.0) H 12/26/16 07: MCH 32.3 pg (27.0-31.0) H 12/26/16 07: MCHC 33.4 g/dL (33.0-37.0) 12/26/16 07: RDW 14.8 % (11.5-14.5) H 12/26/16 07:27 Plt Count 115 K/uL (130-400) L 12/26/16 07: MPV 10.4 fL (7.2-11.7) 12/26/16 07: Neut % (Auto) 27.8 % (50.0-75.0) L 12/26/16 07: Lymph % (Auto) 56.7 % (20.0-40.0) H 12/26/16 07:27 [place] % (Auto) 10.1 % (0.0-10.0) H 12/26/16 07: Eos % (Auto) 4.4 % (0.0-4.0) H 12/26/16 07:27 Baso % (Auto) 1.0 % (0.0-2.0) 12/26/16 07: Neut # 1.7 K/uL (1.8-7.0) L 12/26/16 07: Lymph # 3.5 K/uL (1.0-4.3) 12/26/16 07:27 [place]oux # 0.6 K/uL (0.0-0.8) 12/26/16 07: Eos # 0.3 K/uL (0.0-0.7) 12/26/16 07: Baso # 0.1 K/uL (0.0-0.2) 12/26/16 07:27 Differential Comment 12/25/16 15:42 PT 19.8 SECONDS (9.7-12.2) H 12/25/16 15:42 INR 1.7 12/25/16 15:42 APTT 36 SECONDS (21-34) H 12/25/16 15:42 Sodium 136 mmol/L (132-148) 12/26/16 08:51 Potassium 4.5 mmol/L (3.6-5.2) 12/26/16 08:51 Chloride 102 mmol/L (98-107) 12/26/16 08:51 Carbon Dioxide 21 mmol/L (22-30) L 12/26/16 08:51 Anion Gap 18 (10-20) 12/26/16 08:51 BUN 16 mg/dL (9-20) 12/26/16 08:51 Creatinine 0.8 MG/DL (0.8-1.5) 12/26/16 08:51 Est GFR ( Amer) > 60 12/26/16 08:51 Est GFR (Non-Af Amer) > 60 12/26/16 08:51 Random Glucose 105 mg/dL (75-110) 12/26/16 08:51 Hemoglobin A1c 6.7 % (4.2-6.5) H 12/25/16 15:42 Calcium 8.9 mg/dl (8.6-10.4) 12/26/16 08:51 Phosphorus 3.3 mg/dL (2.5-4.5) 12/26/16 08:51 Magnesium 1.9 mg/dL (1.6-2.3) 12/26/16 08:51 Total Bilirubin 1.1 mg/dL (0.2-1.3) 12/26/16 08:51 AST 48 U/L (17-59) 12/26/16 08:51 ALT 23 U/L (21-72) 12/26/16 08:51 Alkaline Phosphatase 74 U/L (38-126) 12/26/16 08:51 Total Creatine Kinase 131 U/L (55-170) 12/26/16 07:27 CK-MB (Mass) 2.19 ng/mL (0.0-3.38) 12/26/16 07:27 Troponin I 0.0360 ng/mL (0.00-0.120) 12/25/16 15:42 Troponin I, Quant 0.0430 ng/mL (0.00-0.120) 12/26/16 07:27 NT-Pro-B Natriuret Pep 505 pg/mL (0-900) 12/25/16 15:42 Total Protein 7.6 g/dL (6.3-8.3) 12/26/16 08:51 Albumin 3.7 g/dL (3.5-5.0) 12/26/16 08:51 Globulin 3.9 gm/dL (2.2-3.9) 12/26/16 08:51 Albumin/Globulin Ratio 0.9 (1.0-2.1) L 12/26/16 08:51 Triglycerides 102 mg/dL (0-149) D 12/26/16 08:51 Cholesterol 127 mg/dL (0-199) 12/26/16 08:51 LDL Cholesterol Direct 79 mg/dL (0-129) 12/26/16 08:51 HDL Cholesterol 37 mg/dL (30-70) 12/26/16 08:51 Thyroxine (T4) 6.92 ug/dL (5.5-11.0) 12/25/16 15:42 TSH 3rd Generation 2.12 mIU/L (0.46-4.68) 12/25/16 15:42 Urine Color Yellow (YELLOW) 12/25/16 16:12 Urine Clarity Clear (Clear) 12/25/16 16:12 Urine pH 6.0 (5.0-8.0) 12/25/16 16:12 Ur Specific [place]me 1.009 (1.003-1.030) 12/25/16 16:12 Urine Protein Negative mg/dL (NEGATIVE) 12/25/16 16:12 Urine Glucose (UA) Normal mg/dL (Normal) 12/25/16 16:12 Urine Ketones Negative mg/dL (NEGATIVE) 12/25/16 16:12 Urine Blood Negative (NEGATIVE) 12/25/16 16:12 Urine Nitrate Negative (NEGATIVE) 12/25/16 16:12 Urine Bilirubin Negative (NEGATIVE) 12/25/16 16:12 Urine Urobilinogen Normal mg/dL (0.2-1.0) 12/25/16 16:12 Ur Leukocyte Esterase Neg Mirna/uL (Negative) 12/25/16 16:12 Urine WBC (Auto) < 1 /hpf (0-5) 12/25/16 16:12 Urine RBC (Auto) < 1 /hpf (0-3) 12/25/16 16:12 Digoxin 0.6 ng/mL (0.8-2.0) L 12/25/16 15:42 Attending/Attestation - Attestation I have personally seen and examined this patient.: Yes I have fully participated in the care of the patient.: Yes I have reviewed all pertinent clinical information, including history, physical exam and plan: Yes Notes (Text): 12/27/16 07:50 Medical attending: Patient was seen and examined by me, agrees the above note by director of medical review. As mentioned previously the patient does have a cardiac history of pacer, CABG surgery, stenting, and a lot of medical noncompliance. It did seem like he was having costochondritis/musculoskeletal pain when we saw him in the emergency room. His cardiac enzymes were negative 3 the next day when I saw him his chest pain had decreased substantially as well. He was still somewhat reproducible in the morning with palpation We counseled him that he's got to take his medications otherwise he's places himself at a much higher risk than needs to be Thank you very much, Tom Mckeon
--- NOTE | 2016-12-29 19:42 | CARD ---
APPROVED REPORT EKG Measurement Heart [id number] [id number] <Conclusion> Sinus tachycardia Left axis deviation Nonspecific intraventricular block Cannot rule out Anterior infarct, age undetermined T wave abnormality, consider lateral ischemia Abnormal ECG
--- NOTE | 2017-01-06 00:42 | CARD ---
APPROVED REPORT EKG Measurement Heart [id number] <Conclusion> Sinus rhythm with occasional ventricular-paced complexes and premature supraventricular complexes and with occasional prematu Left axis deviation Left bundle branch block Abnormal ECG
--- NOTE | 2017-01-06 00:44 | CARD ---
APPROVED REPORT EKG Measurement Heart [id number] <Conclusion> Normal sinus rhythm with sinus arrhythmia Left axis deviation Left bundle branch block Abnormal ECG
== END 2016-12-26 19:22 | disposition home or self-care (01) ==
LOC: C.ER 14:50 → C.9E 16:50 → C.6T 17:59
PROVIDERS: ADMIT Hospitalist; ATTEND Hospitalist
DX: R07.89 Other chest pain (principal); E78.5 Hyperlipidemia, unspecified; I10 Essential (primary) hypertension; I25.2 Old myocardial infarction; I48.0 Paroxysmal atrial fibrillation; I25.5 Ischemic cardiomyopathy; Z86.73 Personal history of transient ischemic attack (TIA), and cerebral infarction without residual deficits; Z91.14 Patient's other noncompliance with medication regimen; Z95.0 Presence of cardiac pacemaker; Z95.5 Presence of coronary angioplasty implant and graft; I25.10 Atherosclerotic heart disease of native coronary artery without angina pectoris
CPT/HCPCS: 36415; 71010; 80053; 80061; 80162; 81001; 83036; 83735; 83880; 84100; 84436; 84443; 84484; 85025; 85610; 85730; 99285; G0378; J1885